=== PATIENT | male | born 1950 ===

== ENCOUNTER 2017-03-20 07:55 | Day surgery (SDC) | payer OTHER, MEDICAID ==
[2017-03-20 08:31] VITALS: TEMP 98.1
[2017-03-20] MEDS ORDERED: Propofol 10 mg/ml Inj (20 ML) ONE (09:54)
[2017-03-20] MEDS ORDERED: Sodium Chloride 0.9% 1,000 ML IV SCH (11:15)
[2017-03-20 11:19] VITALS: RESP 16; O2SAT 98
[2017-03-20 11:41] VITALS: BP 143/81; PULSE 60
== END 2017-03-20 12:48 | disposition home or self-care (01) ==
LOC: ENDO 07:55
PROVIDERS: ATTEND Internal Medicine
DX: K52.9 Noninfective gastroenteritis and colitis, unspecified (principal); K20.8 Other esophagitis; K29.50 Unspecified chronic gastritis without bleeding; B96.81 Helicobacter pylori [H. pylori] as the cause of diseases classified elsewhere; D12.2 Benign neoplasm of ascending colon; D12.5 Benign neoplasm of sigmoid colon; D12.3 Benign neoplasm of transverse colon; K64.8 Other hemorrhoids; E11.9 Type 2 diabetes mellitus without complications; I10 Essential (primary) hypertension
CPT/HCPCS: 43239; 45380; 45381; 45385; 82948; 88305; 88342; J2704; J3010; J7040 ×2